=== PATIENT | female | born 1960 | race Caucasian/White ===

== ENCOUNTER 2022-01-20 09:59 | Emergency (ER) | payer MEDICARE ==
[2022-01-20 10:31] VITALS: O2SAT 100
[2022-01-20] MEDS ORDERED: Sodium Chloride 0.9% 1000 ML 1,000 ML IV STA (10:38)
[2022-01-20] MEDS ORDERED: Sodium Chloride 0.9% 1000 ML 1,000 ML ONE (10:50)
[2022-01-20 10:51] LABS: Absolute Neutrophil Ct (ANC) 9.32 x10^3/uL (1.4-6.9); Basophil (Absolute #) 0.09 x10^3/uL (0-0.4); Eosinophil % 0.2 % (0.00-5.0); Eosinophil (Absolute #) 0.03 x10^3/uL (0-0.5); Hematocrit 40.6 % (35-47); Hemoglobin 13.2 g/dL (12.0-16.0); Lymphocyte (Absolute #) 2.22 x10^3/uL (1.0-4.6); Lymphocytes % 17.7 % (24.0-44.0); Mean Cell Volume 93.5 fL (78-100); Mean Corpuscular Hemoglobin 30.4 pg (26-32); Mean Corpuscular Hgb Concent. 32.5 g/dL (32-36); Mean Platelet Volume 9.3 fL (7.5-11.0); Monocyte (Absolute #) 0.76 x10^3/uL (0.0-1.3); Monocytes % 6.1 % (0.0-12.0); Neutrophil % 74.3 % (36.0-66.0); Platelet Count 201 x10^3/uL (150-450); Red Blood Count 4.34 x10^6/uL (4.1-5.4); Red Cell Distribution Width 13.5 % (11.5-14.0); White Blood Count 12.6 x10^3/uL (4.0-10.5)
--- NOTE | 2022-01-20 11:08 | ERPHSYRPT ---
- History of Present Illness Time Seen by Provider: 01/20/22 10:25 Source: patient Exam Limitations: no limitations Patient Subjective Stated Complaint: Weakness Triage Nursing Assessment: Patient brought back to ED per w/c and transferred self to bed. Patient A+O X3. Patient's skin pink, warm and dry. Patient is a peritoneal dialysis patient 3 times a week. Patient went to [facility] in [place] for appointment when they found her blood pressure to be low. Standing-64/53, Sitting- 76/52. Patient denies any pain or discomfort. Patient denies dizziness or weakness and states she feels like normal. Physician History: Patient is a 61-year-old white female who is on peritoneal dialysis at home who went to the dialysis center today to be checked and she was found to be orthostatic with blood pressure sitting of 76/52 and standing of 64/53 she initially denied any pain or weakness or fatigue however when pressed she does admit she does feel somewhat weak and somewhat tired. She does not know how much she is actually taking off with each dialysis she has but it is suspected that she may be removing too much fluid. Timing/Duration: today Severity: mild Modifying Factors: Improves With: movement Associated Symptoms: weakness Hx Influenza Vaccination/Date Given: Yes Hx Pneumococcal Vaccination/Date Given: No Immunizations Up to Date: Yes Travel Risk - International Travel Have you traveled outside of the country in past 3 weeks: No - Coronavirus Screening Are you exhibiting any of the following symptoms?: No Close contact with a COVID-19 positive Pt in past 14-21 Days: No - Vaccine Status Have you recieved a Covid-19 vaccination: No - Review of Systems Constitutional: Weakness, No Fever, No Chills Eyes: No Symptoms Ears, Nose, & Throat: No Symptoms Respiratory: No Cough, No Dyspnea Cardiac: No Chest Pain, No Edema, No Syncope Abdominal/Gastrointestinal: No Abdominal Pain, No Nausea, No Vomiting, No Diarrhea Genitourinary Symptoms: No Dysuria Musculoskeletal: No Back Pain, No Neck Pain Skin: No Rash Neurological: No Dizziness, No Focal Weakness, No Sensory Changes Psychological: No Symptoms Endocrine: No Symptoms All Other Systems: Reviewed and Negative - Past Medical History Pertinent Past Medical History: Yes Neurological History: Stroke ENT History: No Pertinent History Cardiac History: High Cholesterol, Hypertension Respiratory History: No Pertinent History Endocrine Medical History: Hypothyroidism Musculoskeletal History: No Pertinent History GI Medical History: GERD History: Dialysis, Kidney Cancer Psycho-Social History: No Pertinent History Female Reproductive Disorders: No Pertinent History Other Medical History: End stage Kidney disease- On peritoneal dialysis 3 times a week - Past Surgical History Past Surgical History: Yes Neuro Surgical History: No Pertinent History Cardiac: Cardiac Catheterization Respiratory: No Pertinent History Gastrointestinal: No Pertinent History Genitourinary: No Pertinent History Musculoskeletal: No Pertinent History Female Surgical History: No Pertinent History Other Surgical History: peritoneal dialysis catheter placed - Social History Smoking Status: Current every day smoker How long have you smoked: years Exposure to second hand smoke: No Drug Use: none Patient Lives Alone: Yes - Nursing Vital Signs Nursing Vital Signs: Initial Vital Signs Temperature 97.5 F 01/20/22 10:18 Pulse Rate 77 01/20/22 10:18 Respiratory Rate 18 01/20/22 10:18 Blood Pressure 92/59 01/20/22 10:18 O2 Sat by Pulse Oximetry 100 01/20/22 10:18 Pain Scale Pain Intensity 0 - Physical Exam General Appearance: no apparent distress, alert Eye Exam: PERRL/EOMI, eyes nml inspection Ears, Nose, Throat Exam: normal ENT inspection, TMs normal, pharynx normal, moist mucous membranes Neck Exam: normal inspection, non-tender, supple, full range of motion Respiratory Exam: normal breath sounds, lungs clear, No respiratory distress Cardiovascular Exam: regular rate/rhythm, normal heart sounds, normal peripheral pulses Gastrointestinal/Abdomen Exam: soft, normal bowel sounds, No tenderness, No mass Back Exam: normal inspection, normal range of motion, No CVA tenderness, No vertebral tenderness Extremity Exam: normal inspection, normal range of motion, pelvis stable Neurologic Exam: alert, oriented x 3, cooperative, normal mood/affect, nml cerebellar function, nml station & gait, sensation nml, No motor deficits Skin Exam: normal color, warm, dry, No rash Lymphatic Exam: No adenopathy SpO2: 100 - Course Nursing assessment & vital signs reviewed: Yes EKG Interpreted by Me: RATE (67), Non-specific ST Changes, Other (Patient shows a sinus rhythm rate of 67 poor R wave progression and a slightly prolonged QT interval.) - Radiology Exams Chest X-ray Interpretation: Reviewed by me Ordered Tests: Active Orders 24 hr Category Date Time Status EKG-ER Only STAT Care 01/20/22 10:38 Active IV Insertion STAT Care 01/20/22 10:38 Active CHEST 1 VIEW (PORTABLE) Stat Exams 01/20/22 10:39 Completed BMP Stat Lab 01/20/22 13:28 Completed CBC W DIFF Stat Lab 01/20/22 10:45 Completed CMP Stat Lab 01/20/22 10:45 Completed CULTURE,URINE Stat Lab 01/20/22 10:49 Received Erythrocyte Sedimentation Rate Stat Lab 01/20/22 10:45 Completed Lactic Acid Stat Lab 01/20/22 10:55 Completed MAGNESIUM Stat Lab 01/20/22 10:45 Completed NT PRO BNP Stat Lab 01/20/22 10:45 Completed TROPONIN Q4HX3 Lab 01/20/22 10:45 Completed UA W/RFX CULTURE Stat Lab 01/20/22 10:49 Completed Medication Summary Discontinued Medications Generic Name Dose Route Start Last Admin Trade Name Freq PRN Reason Stop Dose Admin Sodium Chloride 1,000 mls @ 500 mls/hr 01/20/22 10:38 01/20/22 12:55 Sodium Chloride 0.9% 1000 Ml IV 01/20/22 12:37 Infused .Q2H STA Infusion Sodium Chloride Confirm 01/20/22 10:50 Sodium Chloride 0.9% 1000 Ml Administered 01/20/22 10:51 Dose 1,000 mls @ ud .ROUTE .STK-MED ONE Lab/Rad Data: Laboratory Result Diagrams 01/20/22 10:45 01/20/22 13:28 Laboratory Results 01/20/22 01/20/22 01/20/22 Range/Units 13:28 10:55 10:49 WBC (4.0-10.5) x10^3/uL RBC (4.1-5.4) x10^6/uL Hgb (12.0-16.0) g/dL Hct (35-47) % MCV (78-100) fL MCH (26-32) pg MCHC (32-36) g/dL RDW (11.5-14.0) % Plt Count (150-450) x10^3/uL MPV (7.5-11.0) fL Gran % (36.0-66.0) % Immature Gran % (Auto) (0.00-0.4) % Nucleat RBC Rel Count (0.00-0.1) % Eos # (Auto) (0-0.5) x10^3/uL Immature Gran # (Auto) (0.00-0.03) x10^3u/L Absolute Lymphs (auto) (1.0-4.6) x10^3/uL Absolute Monos (auto) (0.0-1.3) x10^3/uL Absolute Nucleated RBC (0.00-0.01) x10^3u/L Lymphocytes % (24.0-44.0) % Monocytes % (0.0-12.0) % Eosinophils % (0.00-5.0) % Basophils % (0.0-0.4) % Absolute Granulocytes (1.4-6.9) x10^3/uL Basophils # (0-0.4) x10^3/uL ESR (0-20) mm/hr Sodium 129 L (137-145) mmol/L Potassium 4.0 (3.5-5.1) mmol/L Chloride 100 (98-107) mmol/L Carbon Dioxide 16 L* (22-30) mmol/L Anion Gap 16.7 H (5-15) MEQ/L BUN 25 H (7-17) mg/dL Creatinine 2.93 H (0.52-1.04) mg/dL Estimated GFR 17.4 ML/MIN Glucose 87 (74-106) mg/dL Lactic Acid 1.0 (0.4-2.0) Calcium 8.6 (8.4-10.2) mg/dL Magnesium (1.6-2.3) mg/dL Total Bilirubin (0.2-1.3) mg/dL AST (14-36) U/L ALT (0-35) U/L Alkaline Phosphatase (38-126) U/L Troponin I (0.000-0.034) ng/mL NT-Pro-B Natriuret Pep (0-900) pg/mL Serum Total Protein (6.3-8.2) g/dL Albumin (3.5-5.0) g/dL Urinalys Dipstick Clnc MAIN LAB Urine Color YELLOW (YELLOW) Urine Appearance CLOUDY (CLEAR) Urine pH 5.5 (5-6) Ur Specific [place] 1.020 (1.005-1.025) POC Urine Protein Conf NEGATIVE (Negative) Urine Ketones NEGATIVE (NEGATIVE) Urine Nitrite NEGATIVE (NEGATIVE) Urine Bilirubin NEGATIVE (NEGATIVE) Urine Urobilinogen 0.2 (0-1) mg/dL Urine Leukocytes MODERATE (NEGATIVE) Urine WBC (Auto) 51-100 (0-5) /HPF Urine RBC (Auto) 11-15 (0-2) /HPF U Hyaline Cast (Auto) 11-25 (0-2) /LPF U Epithel Cells (Auto) FEW (FEW) /HPF Urine Bacteria (Auto) MANY (NEGATIVE) /HPF Urine RBC NEGATIVE (0-5) [place]/ul Urine Mucus (Auto) SLIGHT (NEGATIVE) /HPF Ur Culture Indicated? YES Urine Glucose NEGATIVE (NEGATIVE) mg/dL 01/20/22 01/20/22 01/20/22 Range/Units 10:45 10:45 10:45 WBC 12.6 H (4.0-10.5) x10^3/uL RBC 4.34 (4.1-5.4) x10^6/uL Hgb 13.2 (12.0-16.0) g/dL Hct 40.6 (35-47) % MCV 93.5 (78-100) fL MCH 30.4 (26-32) pg MCHC 32.5 (32-36) g/dL RDW 13.5 (11.5-14.0) % Plt Count 201 (150-450) x10^3/uL MPV 9.3 (7.5-11.0) fL Gran % 74.3 H (36.0-66.0) % Immature Gran % (Auto) 1.0 H (0.00-0.4) % Nucleat RBC Rel Count 0.0 (0.00-0.1) % Eos # (Auto) 0.03 (0-0.5) x10^3/uL Immature Gran # (Auto) 0.13 H (0.00-0.03) x10^3u/L Absolute Lymphs (auto) 2.22 (1.0-4.6) x10^3/uL Absolute Monos (auto) 0.76 (0.0-1.3) x10^3/uL Absolute Nucleated RBC 0.00 (0.00-0.01) x10^3u/L Lymphocytes % 17.7 L (24.0-44.0) % Monocytes % 6.1 (0.0-12.0) % Eosinophils % 0.2 (0.00-5.0) % Basophils % 0.7 (0.0-0.4) % Absolute Granulocytes 9.32 H (1.4-6.9) x10^3/uL Basophils # 0.09 (0-0.4) x10^3/uL ESR 58 H (0-20) mm/hr Sodium 127 L (137-145) mmol/L Potassium 4.4 (3.5-5.1) mmol/L Chloride 97 L (98-107) mmol/L Carbon Dioxide 14 L* (22-30) mmol/L Anion Gap 20.1 H (5-15) MEQ/L BUN 27 H (7-17) mg/dL Creatinine 3.20 H (0.52-1.04) mg/dL Estimated GFR 15.7 ML/MIN Glucose 93 (74-106) mg/dL Lactic Acid (0.4-2.0) Calcium 9.4 (8.4-10.2) mg/dL Magnesium 1.9 (1.6-2.3) mg/dL Total Bilirubin 0.80 (0.2-1.3) mg/dL AST 63 H (14-36) U/L ALT 39 H (0-35) U/L Alkaline Phosphatase 193 H (38-126) U/L Troponin I 0.013 (0.000-0.034) ng/mL NT-Pro-B Natriuret Pep 1580 H (0-900) pg/mL Serum Total Protein 7.9 (6.3-8.2) g/dL Albumin 4.7 (3.5-5.0) g/dL Urinalys Dipstick Clnc Urine Color (YELLOW) Urine Appearance (CLEAR) Urine pH (5-6) Ur Specific [place] (1.005-1.025) POC Urine Protein Conf (Negative) Urine Ketones (NEGATIVE) Urine Nitrite (NEGATIVE) Urine Bilirubin (NEGATIVE) Urine Urobilinogen (0-1) mg/dL Urine Leukocytes (NEGATIVE) Urine WBC (Auto) (0-5) /HPF Urine RBC (Auto) (0-2) /HPF U Hyaline Cast (Auto) (0-2) /LPF U Epithel Cells (Auto) (FEW) /HPF Urine Bacteria (Auto) (NEGATIVE) /HPF Urine RBC (0-5) [place]/ul Urine Mucus (Auto) (NEGATIVE) /HPF Ur Culture Indicated? Urine Glucose (NEGATIVE) mg/dL - Progress Progress: improved - Departure Departure Disposition: Home Clinical Impression: Dehydration Condition: Stable Critical Care Time: No Referrals: BJ PSIANO MD [Primary Care Provider] - Follow up/PCP as directed Instructions: Dehydration, Adult (DC) Additional Instructions: Patient was instructed to increase her fluid intake.
[2022-01-20 11:12] LABS: ALBUMIN 4.7 g/dL (3.5-5.0); ANION GAP 20.1 MEQ/L (5-15); BILIRUBIN,TOTAL 0.8 mg/dL (0.2-1.3); Calcium 9.4 mg/dL (8.4-10.2); Creatinine 1 3.2 mg/dL (0.52-1.04); EST GLOMERULAR FILTRATION RATE 15.7 ML/MIN; MAGNESIUM 1.9 mg/dL (1.6-2.3); Potassium 4.4 mmol/L (3.5-5.1); Total Protein 7.9 g/dL (6.3-8.2)
--- NOTE | 2022-01-20 11:26 | XRAY ---
Exam: AP upright portable chest film from 01/20/2022. Comparison: [None.] Indication: 61-year-old female with general ill feeling; weakness. Findings: The heart size is normal. A moderate-sized calcified lymph node is seen within the left hilum. There are a few small calcified granulomas at the left lung base, as well as multiple calcified granulomas within the spleen in the left upper quadrant. The lungs are well inflated. A right-sided cardiac pacemaker is seen with a single transvenous lead extending toward the apex of the right ventricle. The generator for the pacemaker partially obscures the peripheral right midlung field. Otherwise, the remainder of the lung [place] appears clear. No vascular congestion, pneumothorax, or pleural fluid is seen. Surgical clips consistent with prior cholecystectomy are noted within the right upper quadrant. No acute osseous process is seen. Slight convexity of the mid thoracic spine toward the right and the upper lumbar spine toward the left is seen. Impression: 1. No acute cardiopulmonary disease is seen. 2. Some old healed granulomatous disease is evident, as discussed above. 3. Right-sided cardiac pacemaker with a single transvenous lead and evidence of prior cholecystectomy are seen.
[2022-01-20 11:39] LABS: Erythrocyte Sedimentation Rate 58 mm/hr (0-20)
[2022-01-20 11:42] LABS: Bacteria MANY /HPF (NEGATIVE); Epithelial Cells FEW /HPF (FEW); Mucus SLIGHT /HPF (NEGATIVE); WBC 51-100 /HPF (0-5)
[2022-01-20 11:50] LABS: Appearance CLOUDY (CLEAR); Bilirubin NEGATIVE (NEGATIVE); Dipstick done @ ? MAIN LAB; Glucose NEGATIVE (NEGATIVE); Ketones NEGATIVE (NEGATIVE); Nitrite NEGATIVE (NEGATIVE); Ph 5.5 (5-6); Protein,Urine Dip NEGATIVE (Negative); RBC NEGATIVE Ery/ul (0-5); Urobilinogen 0.2 mg/dL (0-1)
[2022-01-20 12:03] LABS: Urine Cultured Indicated? YES
[2022-01-20 13:44] LABS: ANION GAP 16.7 MEQ/L (5-15); Calcium 8.6 mg/dL (8.4-10.2); Creatinine 1 2.93 mg/dL (0.52-1.04); EST GLOMERULAR FILTRATION RATE 17.4 ML/MIN
[2022-01-20 14:10] VITALS: BP 105/78; PULSE 66
== END 2022-01-20 14:18 | disposition home or self-care (01) ==
LOC: ED 09:59
DX: E86.0 Dehydration (principal); I95.9 Hypotension, unspecified; R53.1 Weakness; E78.5 Hyperlipidemia, unspecified; I12.0 Hypertensive chronic kidney disease with stage 5 chronic kidney disease or end stage renal disease; N18.6 End stage renal disease; Z99.2 Dependence on renal dialysis; Z72.0 Tobacco use; Z28.310 Unvaccinated for COVID-19
CPT/HCPCS: 36000; 36415; 71045; 80048; 80053; 81015; 83605; 83735; 83880; 84484; 85025; 85652; 87077; 87086; 87186; 93005; 96360; 96361; 99284